=== PATIENT | male | born 1945 | race Caucasian/White ===

== ENCOUNTER 2023-11-06 11:17 | Outpatient (CLI) | payer MEDICARE, OTHER ==
[2023-11-06 12:43] LABS: #Basophils 0.1 10x3/uL (0.0-0.2); #Eosinphils 0.3 10x3/uL (0.0-0.5); #Monocytes 0.6 10x3/uL (0.0-1.1); #Neutrophils 4.4 10x3/uL (1.5-8.4); %Basophils 0.9 % (0.0-2.0); %Eosinophils 4.2 % (0.0-6.0); %Lymphocytes 17.5 % (18.0-47.0); %Monocytes 8.9 % (0.0-10.0); %Neutrophils 68.3 % (40.0-75.0); Hematocrit 48.7 % (38.8-50.0); Hemoglobin 16.2 g/dL (13.5-17.5); Mean Corpuscular HGB CONC 33.3 g/dL (32.0-36.0); Mean Corpuscular Hemoglobin 29.9 pg (27.0-33.0); Mean Corpuscular Volume 89.9 fl (81.2-95.1); Mean Platelet Volume 11.3 fl (7.4-10.4); Platelet Count 179 10x3/uL (150-450); RBC Distribution Width 14.1 % (11.5-14.5); Red Blood Cell (RBC) Count 5.42 10x6/uL (4.32-5.72); White Blood Cell (WBC) Count 6.4 10x3/uL (3.5-10.5)
[2023-11-06 13:02] LABS: ALT (SGPT) 22 U/L (8-55); AST (SGOT) 14 U/L (5-34); Albumin 4.2 g/dL (3.4-4.8); Alkaline Phosphatase 62 U/L (40-110); Anion Gap 15 mmol/L (10-20); BUN (Urea Nitrogen) 11 mg/dL (8.4-25.7); Bilirubin, Total 0.5 mg/dL (0.2-1.2); Calc. Creatinine Clearance 0 mL/min (70-130); Calcium 9.1 mg/dL (7.8-10.44); Carbon Dioxide 21 mmol/L (23-31); Chloride 106 mmol/L (98-107); Estimated GFR 75; Globulin 2.5 g/dL (2.4-3.5); Glucose 94 mg/dL (83-110); Potassium 4.3 mmol/L (3.5-5.1); Protein, Total 6.7 g/dL (5.8-8.1); Sodium 138 mmol/L (136-145)
== END 2023-11-06 11:18 | disposition home or self-care (01) ==
LOC: LABBT 11:17
PROVIDERS: ATTEND Surgery
DX: Z01.818 Encounter for other preprocedural examination (principal); K40.20 Bilateral inguinal hernia, without obstruction or gangrene, not specified as recurrent; K42.9 Umbilical hernia without obstruction or gangrene
CPT/HCPCS: 80053; 85025; 93005; 93010

== ENCOUNTER 2023-11-11 05:53 | Day surgery (SDC) | payer MEDICARE, OTHER ==
[2023-11-06 11:47] VITALS: BMI 28.1
[2023-11-11] MEDS ORDERED: Bupivacaine 0.25% HCL 30 ML VIAL ONE (06:33)
[2023-11-11] MEDS ORDERED: EPINEPHrine 1 MG/ML VIAL ONE (06:33)
[2023-11-11] MEDS ORDERED: PROPOFOL 20 ML ONE (06:57)
[2023-11-11] MEDS ORDERED: SUGAMMADEX SODIUM 200 MG/2 ML VIAL ONE (06:57)
[2023-11-11] MEDS ORDERED: fentaNYL PF 100 MCG/2 ML SYRINGE ONE (06:57)
[2023-11-11] MEDS ORDERED: Rocuronium Bromide 10 MG/ML (10ML VIAL) ONE (06:57)
[2023-11-11] MEDS ORDERED: ePHEDrine Sulfate 50 MG/10 ML VIAL ONE (06:57)
[2023-11-11] MEDS ORDERED: Sodium Chloride 0.9% 100 ML ONE ×2 (06:58→07:27)
[2023-11-11] MEDS ORDERED: Phenylephrine 10 MG/ML VIAL ONE (06:58)
[2023-11-11] MEDS ORDERED: CEFAZOLIN 2 GM VIAL ONE (07:27)
[2023-11-11] MEDS ORDERED: Lidocaine 2% 6 ML (Jelly) SYR ONE (07:27)
[2023-11-11] MEDS ORDERED: Dexamethasone 20 MG/5 ML VIAL ONE (07:51)
[2023-11-11] MEDS ORDERED: Ondansetron PF 4 MG/2 ML Vial ONE (07:51)
[2023-11-11] MEDS ORDERED: Ketorolac Tromethamine 30 MG (1 mL) VIAL ONE (07:53)
== END 2023-11-11 11:10 | disposition home or self-care (01) ==
LOC: SDC 05:53
PROVIDERS: ATTEND Surgery
PROC: 0YU647Z Supplement Left Inguinal Region with Autologous Tissue Substitute, Percutaneous Endoscopic Approach (ICD-10-PCS; principal; 2023-11-11)
DX: K40.31 Unilateral inguinal hernia, with obstruction, without gangrene, recurrent (principal); K42.9 Umbilical hernia without obstruction or gangrene; Z79.899 Other long term (current) drug therapy; Z87.891 Personal history of nicotine dependence
CPT/HCPCS: 49650; J0171; A4314; C1781; J0665; J1100; J1885; J2371; J2405; J2704; J3490